=== PATIENT | male | born 1980 | race Hispanic/Latino ===

== ENCOUNTER 2024-06-04 11:51 | Emergency (ER) | payer SELFPAY ==
[~2024-06-04] VITALS: Ht 162.6 cm; Wt 83.0 kg
[2024-06-04 12:01] VITALS: BP 122/83
[2024-06-04 12:30] VITALS: BP 124/78
[2024-06-04] MEDS ORDERED: KEFLEX500 MG PO (12:52)
[2024-06-04 13:00] VITALS: BP 115/74
[2024-06-04 13:31] VITALS: BP 109/71
[2024-06-04 13:33] VITALS: BP 109/71
== END 2024-06-04 13:46 | disposition home or self-care (01) | DRG 603 ==
LOC: ED 11:51
DX: L03.115 Cellulitis of right lower limb (principal); S81.831A Puncture wound without foreign body, right lower leg, initial encounter; W60.XXXA Contact with nonvenomous plant thorns and spines and sharp leaves, initial encounter; Y93.H2 Activity, gardening and landscaping; Y99.0 Civilian activity done for income or pay